=== PATIENT | female | born 1975 | race Caucasian/White ===

== ENCOUNTER → 2017-11-28 13:50 | Outpatient (CLI) | payer SELFPAY ==
[2017-12-01 13:34] LABS: HPV Reflexed? NOT INDICATED
== END ==
PROVIDERS: Visit Provider Obstetrics & Gynecology
DX: Z12.4 Encounter for screening for malignant neoplasm of cervix (principal)
CPT/HCPCS: 88175; G0145

== ENCOUNTER → 2021-01-11 | Outpatient (CLI) | payer BC, SELFPAY ==
[2021-01-11 22:20] LABS: Absolute Lymphocyte Count 1.61 X10^3/uL (0.83-4.51); Basophil# 0.04 X10^3/uL; Basophil% 0.7 % (0-1); Eosinophil# 0.05 X10^3/uL; Eosinophils% 0.8 % (0-5); Hematocrit 38.1 % (37-47); Hemoglobin 12.9 g/dL (12.0-15.0); Lymphocyte # 1.61 X10^3/ul (0.83-4.51); Lymphocyte % 26.4 % (19-41); Mean Corp Hgb Conc 33.9 g/dL (32-36); Mean Corpuscular Hgb 28.7 pg (27.0-32.0); Mean Corpuscular Volume 84.9 fL (81-99); Mean Platelet Vol. 11.1 fl (6.2-12.0); Monocyte% 6.5 % (0-10); NRBC Flagged by Analyzer 0 % (0-5); Neutrophil # 3.99 X10^3/uL (2.7-7.7); Neutrophil % 65.3 % (47-70); Platelet Count 247 K/mm3 (150-450); RBC Distribution Width CV 12.7 % (11.6-14.6); RBC Distribution Width SD 38.8 fl (35.1-43.9); Red Blood Count 4.49 M/mm3 (4.2-5.4); White Blood Count 6.1 K/mm3 (4.4-11.0)
[2021-01-11 22:47] LABS: ALB/GLOB Ratio 1.1 RATIO (0.9-2.4); AST(SGOT) 16 U/L (15-37); Alanine Aminotransfer ALT/SGPT 17 U/L (13-56); Alkaline Phosphatase 46 U/L (45-117); Anion Gap 9 (5-15); BUN 14 mg/dL (7-18); BUN/Creat Ratio 21.7 RATIO (10-20); Calcium,Total 9.1 mg/dL (8.5-10.1); Chloride 102 mmol/L (98-107); Creatinine, Serum 0.64 mg/dL (0.55-1.02); EST Glomerular Filtration Rate 105 mL/min (>60); Est Glom Filt Rate - Afr Amer 128 mL/min (>60); Globulin 3.5 g/dL (2.2-4.2); Glucose 86 mg/dL (74-106); Potassium 3.8 mmol/L (3.5-5.1); Protein, Total 7.5 g/dL (6.4-8.2); Sodium Level 139 mmol/L (136-145); Thyroid Stim Hormone (TSH) 1.62 uIU/mL (0.358-3.74)
== END | disposition home or self-care (01) ==
PROVIDERS: Referring Provider Nurse Practitioner; Visit Provider Nurse Practitioner
DX: F41.9 Anxiety disorder, unspecified (principal); F42.9 Obsessive-compulsive disorder, unspecified
CPT/HCPCS: 80053; 84443; 85025

== ENCOUNTER → 2021-09-27 | Outpatient (CLI) | payer BC, SELFPAY ==
--- NOTE | 2021-09-27 | ASPS_PTH ---
PATIENT: MIRZA TOVAR LOC: [facility] U#:[id number] AGE/SX: 46/F ROOM: RE09/27/[address]: Dr. Nurys Delarosa MD : 1975 BED: DIS: 09/27/2021 SPEC #: [id number] RECD: 09/27/21 15:17 STATUS: PRISCILA PATTI #: [id number] ANGELICA: 09/27/21 00:[address]: Nurys Delarosa DEPT: CYTOLOGY RECD BY: Ashley Adam ENTERED: 09/28/21 11:09 SP TYPE: ASPIRATION OTHR DR: No Primary Care Phys Tissues: Left breast, NOS Procedures: Special Stain Group II Cytology Other HEADER OPERATION: Fine needle aspiration, left breast mass PRE-OP DIAGNOSIS: Left breast mass TISSUE SUBMITTED: Fine needle aspiration, left breast mass x2 slides DIAGNOSIS CYTOLOGY Fine needle aspiration, left breast mass (smears): Consistent with fibroadenoma. AM:rafa 09/29/2021 CYTOLOGY STUDY Slides are reviewed. CYTOLOGY GROSS Received are two smears labeled with the patient's name and designated per the requisition as left breast mass. Submitted for staining. / rg 09/28/2021 TC:5 CPT: 12253
== END | disposition home or self-care (01) ==
LOC: LABSPEC 15:23
PROVIDERS: Referring Provider Surgery; Visit Provider Surgery
DX: N63.20 Unspecified lump in the left breast, unspecified quadrant (principal)
CPT/HCPCS: 88161; 88313

== ENCOUNTER → 2022-12-05 | Outpatient (CLI) | payer OTHER, SELFPAY ==
[2022-12-05 21:27] LABS: Absolute Lymphocyte Count 1.88 X10^3/uL (0.83-4.51); Absolute Neutrophil Count 4.6 X10^3/uL (2.0-7.7); Basophil# 0.05 X10^3/uL; Basophil% 0.7 % (0-1); Eosinophil# 0.08 X10^3/uL; Eosinophils% 1.1 % (0-5); Hematocrit 38.6 % (37-47); Hemoglobin 12.4 g/dL (12.0-15.0); Lymphocyte # 1.88 X10^3/ul (0.83-4.51); Lymphocyte % 26.8 % (19-41); Mean Corp Hgb Conc 32.1 g/dL (32-36); Mean Corpuscular Hgb 27.6 pg (27.0-32.0); Mean Corpuscular Volume 85.8 fL (81-99); Mean Platelet Vol. 10.9 fl (6.2-12.0); Monocyte# 0.44 X10^3/uL; Monocyte% 6.3 % (0-10); NRBC Flagged by Analyzer 0 % (0-5); Neutrophil # 4.55 X10^3/uL (2.7-7.7); Neutrophil % 64.8 % (47-70); Platelet Count 269 K/mm3 (150-450); RBC Distribution Width CV 12.6 % (11.6-14.6); RBC Distribution Width SD 39.4 fl (35.1-43.9)
[2022-12-05 21:42] LABS: AST(SGOT) 13 U/L (15-37); Alanine Aminotransfer ALT/SGPT 20 U/L (13-56); Albumin, Serum 3.5 g/dL (3.2-5.0); Alkaline Phosphatase 52 U/L (45-117); Anion Gap 6 (5-15); BUN 18 mg/dL (7-18); BUN/Creat Ratio 26.7 RATIO (10-20); Calcium,Total 8.8 mg/dL (8.5-10.1); Chloride 107 mmol/L (98-107); Cholesterol 200 mg/dL (200); Creatinine, Serum 0.68 mg/dL (0.55-1.02); EST Glomerular Filtration Rate 99 mL/min (>60); Est Glom Filt Rate - Afr Amer 120 mL/min (>60); Follicle Stimulating Hormone 5.1 mIU/mL; Globulin 3.4 g/dL (2.2-4.2); Glucose 100 mg/dL (74-106); High Density Lipoprotein 56 mg/dL; Luteinizing Hormone 8.2 mIU/mL; Potassium 3.8 mmol/L (3.5-5.1); Protein, Total 6.9 g/dL (6.4-8.2); Sodium Level 138 mmol/L (136-145); Triglycerides 168 mg/dL; Very Low Density Lipoprotein 34 mg/dL (5-40)
== END | disposition home or self-care (01) ==
PROVIDERS: PCP Nurse Practitioner; Visit Provider Nurse Practitioner
DX: N95.1 Menopausal and female climacteric states (principal); F41.9 Anxiety disorder, unspecified; F42.9 Obsessive-compulsive disorder, unspecified
CPT/HCPCS: 80053; 80061; 83001; 83002; 85025

== ENCOUNTER → 2024-12-08 | Outpatient (CLI) | payer OTHER, SELFPAY ==
--- NOTE | 2024-12-08 08:20 | BI_ITS ---
EXAM: BI/SCRN MAMM (CAD)W/PAULINA BILAT
== END | disposition home or self-care (01) ==
LOC: OPBI 08:18
PROVIDERS: PCP Nurse Practitioner; Referring Provider Obstetrics & Gynecology; Visit Provider Obstetrics & Gynecology
DX: Z12.31 Encounter for screening mammogram for malignant neoplasm of breast (principal); R92.30 Dense breasts, unspecified
CPT/HCPCS: 77063; 77067

== ENCOUNTER → 2024-12-17 | Outpatient (CLI) | payer OTHER, SELFPAY ==
--- NOTE | 2024-12-17 14:06 | US_ITS ---
PROCEDURE: BREAST LIMITED UNILATERAL 12/17/2024 REASON FOR EXAM: F, Age 49 y/o , NODULES Bilateral breast nodules seen on the recent mammogram. COMPARISON: Mammogram dated December 08, 2024.. TECHNIQUE: Procedure Code: USBRSTLIMIT Modality: US Procedure: BREAST LIMITED UNILATERAL. The entire right breast was examined by ultrasound. FINDINGS: Multiple cysts are seen. The largest cyst is at the 7 o'clock position of the breast at 1 cm from the nipple. This measures 2.7 cm 3.3 cm 1.4 cm. US/Breast Limited Unilateral IMPRESSION: Multiple right breast cysts. BI-RADS 2: BENIGN RECOMMENDATION: Routine annual follow-up in 1 Year [facility]
--- NOTE | 2024-12-17 14:06 | US_ITS ---
PROCEDURE: BREAST LIMITED UNILATERAL 12/17/2024 REASON FOR EXAM: F, Age 49 y/o , NODULES Abnormal screening mammogram demonstrating multiple nodules. COMPARISON: Prior mammogram dated December 08, 2024.. TECHNIQUE: Procedure Code: USBRSTLIMIT Modality: US Procedure: BREAST LIMITED UNILATERAL. The entire left breast was examined with ultrasound. FINDINGS: Multiple cysts are seen. The largest is in the retroareolar region of the breast measuring 4.5 cm x 5 cm 3.5 cm. There is also evidence of a 9 mm x 8 mm x 6 mm well-defined hypoechoic nodular density at the 7 o'clock position of the breast at 1 cm from the nipple. Biopsy recommended. US/Breast Limited Unilateral IMPRESSION: Multiple cysts in the left breast as described. 9 mm x 8 mm x 6 mm well-defined hypoechoic nodule at the 7 o'clock position of the breast at 1 cm from the nipple. Biopsy recommended. BI-RADS 4: SUSPICIOUS RECOMMENDATION: Biopsy Recommended Reading Location: [place] [id number]
== END | disposition home or self-care (01) ==
PROVIDERS: PCP Nurse Practitioner; Referring Provider Obstetrics & Gynecology; Visit Provider Obstetrics & Gynecology
DX: N63.10 Unspecified lump in the right breast, unspecified quadrant (principal); N63.20 Unspecified lump in the left breast, unspecified quadrant
CPT/HCPCS: 76642